=== PATIENT | male | born 1995 | race Caucasian/White ===

== ENCOUNTER 2023-07-30 13:59 | Emergency (ER) | payer OTHER, SELFPAY ==
[2023-07-30 14:03] VITALS: BP 144/84; PULSE 102; RESP 18; TEMP 36.6; O2SAT 99; BMI 30.8
--- NOTE | 2023-07-30 14:07 | DI.RAD.S_ITS ---
PROCEDURE: XR ANKLE RT MIN 3V INDICATIONS: rolled ankle/heard a pop TECHNIQUE: 3 views of the ankle were acquired. COMPARISON: None. FINDINGS: Bones: No fractures or dislocations. Ankle mortise is normally aligned. No suspicious bony lesions. Soft tissues: No tibiotalar joint effusion. Achilles tendon appears normal. Lateral soft tissue swelling IMPRESSION: Soft tissue swelling without fracture or foreign body Approved by: Omid Garland M.D. on 07/30/2023 at 14:38
--- NOTE | 2023-07-30 14:47 | ED_ITS ---
HPI - Extremity Injury (Lower) <Abdoul Dumas PA-C - Last Filed: 07/30/23 16:00> General Chief Complaint: Extremity Injury, Lower Stated Complaint: Rolled R/ankle, swelling and painful Time Seen by Provider: 07/30/23 14:34 Source: patient Mode of arrival: Wheelchair History of Present Illness HPI Narrative: This is a 28-year-old male presents emergency department due to a rolled right ankle. Was walking on uneven ground and he rolled it. Moody a ?pop?. Denies any numbness but states moderate pain to the right ankle. Review of Systems <Abdoul Dumas PA-C - Last Filed: 07/30/23 16:00> Review of Systems Narrative: GENERAL: Denies chills, fatigue, malaise, fever, sweats. HEENT: Denies sinus pain, ear pain, sore throat, difficulty swallowing, dizziness. RESPIRATORY: Denies dyspnea, cough, wheezing, hemoptysis, sputum. CARDIOVASCULAR: Denies chest pain, palpitations, orthopnea, edema, GASTROINTESTINAL: Denies nausea, vomiting, abdominal pain, diarrhea, constipation, melena. : Denies dysuria, frequency, incontinence, hematuria, urinary retention. MUSCULOSKELETAL: Right ankle pain SKIN: Denies rash, skin lesions, or other NEUROLOGIC: Denies weakness, headache, numbness, change in speech, confusion, seizures, incoordination. PSYCHIATRIC: No concerning psychosocial issues. 12 point review of systems is negative except for those stated above Patient History <Abdoul Dumas PA-C - Last Filed: 07/30/23 16:00> Social History Smoking Status: Never smoker Smoking Status: Never smoker Substance Use Type: does not use Exam <Abdoul Dumas PA-C - Last Filed: 07/30/23 16:00> Narrative Exam Narrative: GENERAL: Well-developed patient, in mild distress. HEAD: Atraumatic. Normocephalic. EYES: Pupils equal round and reactive. Extraocular motions intact. No scleral icterus. No injection or drainage. ENT: Nose without bleeding, purulent drainage. Throat without erythema, tonsillar hypertrophy or exudate. Airway patent. NECK: Trachea midline. Non tender CARDIOVASCULAR: Regular rate and rhythm without murmurs, gallops, or rubs. RESPIRATORY: Clear to auscultation. Breath sounds equal bilaterally. No wheezes, rales, or rhonchi. GASTROINTESTINAL: Abdomen soft, non-tender, nondistended. EXTREMITIES: Moderate tenderness to palpation and edema about the lateral malleolus of the right ankle. Neurovascularly intact. BACK: Nontender without deformity or crepitance. No flank tenderness. NEURO: AOx3. SKIN: No rash or erythema of visible areas Initial Vital Signs Initial Vital Signs: Vital Signs Temperature 97.8 F 07/30/23 14:03 Pulse Rate 102 H 07/30/23 14:03 Respiratory Rate 18 07/30/23 14:03 Blood Pressure 144/84 H 07/30/23 14:03 Pulse Oximetry 99 07/30/23 14:03 Oxygen Delivery Method Room Air 07/30/23 14:03 <DO Martell Jean Last Filed: 07/31/23 07:57> Initial Vital Signs Initial Vital Signs: Vital Signs Temperature 97.8 F 07/30/23 14:03 Pulse Rate 102 H 07/30/23 14:03 Respiratory Rate 18 07/30/23 14:03 Blood Pressure 144/84 H 07/30/23 14:03 Pulse Oximetry 99 07/30/23 14:03 Oxygen Delivery Method Room Air 07/30/23 14:03 Course <Abdoul Dumas PA-C - Last Filed: 07/30/23 16:00> Orders Ordered: ED Orders 07/30/23 14:07 XR ankle RT min 3V Stat Vital Signs Vital signs: Vital Signs - 8 hr 07/30/23 14:03 Temperature 97.8 F Pulse Rate 102 H Respiratory Rate 18 Blood Pressure 144/84 H Pulse Oximetry 99 Oxygen Delivery Method Room Air <DO Martell Jean Last Filed: 07/31/23 07:57> Orders Ordered: ED Orders 07/30/23 14:07 XR ankle RT min 3V Stat Vital Signs Vital signs: Vital Signs - 8 hr 07/30/23 14:03 Temperature 97.8 F Pulse Rate 102 H Respiratory Rate 18 Blood Pressure 144/84 H Pulse Oximetry 99 Oxygen Delivery Method Room Air MDM - Extremity Injury (Lower) <JOSEPH Caro Last Filed: 07/30/23 16:00> Imaging Data Extremity x-ray #1: Radiologist's Impression: [address] [address] XRay Report Signed Patient: Fabio Thomas MR#: [id number] : 1995 Acct:[id number] Age/Sex: 28 / M Date of Service: 07/30/23 Loc: ED Accession Number: [id number] ?? Procedure: XR ankle RT min 3V Ordering Provider: Cora Gray D.O. PROCEDURE:? XR ANKLE RT MIN 3V ? INDICATIONS:? rolled ankle/heard a pop ? TECHNIQUE:? 3 views of the ankle were acquired.? ? COMPARISON:? None. ? FINDINGS:? ? Bones:? No fractures or dislocations.? Ankle mortise is normally aligned.? No suspicious bony lesions.? ? Soft tissues:? No tibiotalar joint effusion.? Achilles tendon appears normal.? Lateral soft tissue swelling ? ? IMPRESSION:? Soft tissue swelling without fracture or foreign body ? Approved by: Omid Garland M.D. on 07/30/2023 at 14:38? MDM Narrative Medical decision making narrative: MDM * differential diagnosis includes but not limited to right ankle fracture, sprain ankle, soft tissue injury * Prior records reviewed: Patient has not been here to the emergency department in the past. * My lab interpretation: None obtained * My imgaing interpretation: Right ankle x-ray negative for fractures * Clinical Decision Rules/Scores evaluated: None * Independent discussions with: None ED Course: This is a 28-year-old male presents emergency department due to a sprain right ankle. No fractures on x-ray neurovascularly intact throughout. Recommended conservative management. Shared Decision Making: Discussed plan with patient who is comfortable with the plan Social Considerations: None Disposition: Discharged to home Discharge Plan Departure Patient Disposition: Home Clinical Impression: Ankle sprain and strain Instructions: Ankle Sprain Activity Restrictions/Additional Instructions: Thank you for coming to the [facility] Emergency Department today. Your right ankle x-ray was negative for any fractures. This is essentially ?sprained ankle?. Please use elevation ice to help with the swelling you may also use ibuprofen and Tylenol for pain control. I hope you feel better soon. Please follow up with your primary care provider within a week if your symptoms continue. If you do not have a primary care provider please contact the [facility] Resource line at [phone]. They will ask some questions about your medical history and help you get set up with a provider in the community. Referrals: Miscellaneous,Doctor, [Primary Care Provider] - Stand Alone Forms: Patient Portal/API <Cora Gray DO - Last Filed: 07/31/23 07:57> Cosign ED Attending Deborah Attestation: I was immediately available in the department for consultation. Documentation has been reviewed.
[2023-07-30 16:04] VITALS: BP 138/86; PULSE 90; RESP 16; O2SAT 99
== END 2023-07-30 16:04 | disposition home or self-care (01) ==
PROVIDERS: Emergency Provider Physician Assistant Medical
DX: S93.401A Sprain of unspecified ligament of right ankle, initial encounter (principal); S96.911A Strain of unspecified muscle and tendon at ankle and foot level, right foot, initial encounter; X50.1XXA Overexertion from prolonged static or awkward postures, initial encounter
CPT/HCPCS: 73610; 99281; 99283